=== PATIENT | male | born 1995 | race Caucasian/White ===

== ENCOUNTER 2016-07-27 23:44 | Emergency (ER) | payer MEDICAID ==
[~2016-07-27] VITALS: Ht 188 cm; Wt 74.8 kg
[2016-07-27 23:52] VITALS: BP 140/90
--- NOTE | 2016-07-28 03:35 | NUR ---
TO ER BED 5
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
[2016-07-28] MEDS ORDERED: LIDOCAINE/EPI 1% 1:100000 20 ML VIAL INJ ONE (04:05)
[2016-07-28] MEDS ORDERED: BACITRACIN OINT 500 UNITS/GM PKT TP ONE (04:05)
[2016-07-28] MEDS ORDERED: NEOMYCIN/POLYMYXIN/BACITRACIN 0.9 GM/1 PKT TP ONE (04:25)
[2016-07-28 05:42] VITALS: BP 140/90
== END 2016-07-28 05:43 | disposition home or self-care (01) ==
LOC: MED 23:44
DX: S71.012A Laceration without foreign body, left hip, initial encounter (principal); W22.8XXA Striking against or struck by other objects, initial encounter; Y93.51 Activity, roller skating (inline) and skateboarding; Y92.89 Other specified places as the place of occurrence of the external cause; Y99.8 Other external cause status
CPT/HCPCS: 12001; 73502; 99284; J2001; Q0092

== ENCOUNTER 2017-12-13 15:41 | Emergency (ER) | payer MEDICAID ==
[~2017-12-13] VITALS: Ht 190.5 cm; Wt 78.9 kg
[2017-12-13 15:48] VITALS: BP 174/82
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
[2017-12-13 16:34] VITALS: BP 174/82
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
== END 2017-12-13 16:35 ==
LOC: MED 15:41
DX: S62.327A Displaced fracture of shaft of fifth metacarpal bone, left hand, initial encounter for closed fracture (principal); W22.8XXA Striking against or struck by other objects, initial encounter; Y93.89 Activity, other specified; Y92.89 Other specified places as the place of occurrence of the external cause; Y99.8 Other external cause status
CPT/HCPCS: 73130; 99284

== ENCOUNTER 2017-12-18 11:09 | Emergency (ER) | payer MEDICAID ==
[~2017-12-18] VITALS: Ht 190.5 cm; Wt 78.9 kg
[2017-12-18 11:56] VITALS: BP 119/83
--- NOTE | 2017-12-18 13:17 | NUR ---
PT AMBULATED TO BED 12
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
[2017-12-18 14:30] VITALS: BP 125/78
--- NOTE | 2017-12-18 14:30 | NUR ---
Patient discharged with v/s stable. Written and verbal after care instructions given and explained. Patient alert, oriented and verbalized understanding of instructions. Ambulatory with steady gait. All questions addressed prior to discharge. ID band removed. Patient advised to follow up with PMD. Opportunity to ask questions provided and answered.
== END 2017-12-18 14:30 | disposition home or self-care (01) ==
LOC: MED 11:09
DX: S62.327A Displaced fracture of shaft of fifth metacarpal bone, left hand, initial encounter for closed fracture (principal); Y04.0XXA Assault by unarmed brawl or fight, initial encounter; Y93.89 Activity, other specified; Y92.89 Other specified places as the place of occurrence of the external cause; Y99.8 Other external cause status
CPT/HCPCS: 29125; 73130; 99284; Q0092

== ENCOUNTER 2018-05-24 18:35 | Emergency (ER) | payer MEDICAID, OTHER ==
[~2018-05-24] VITALS: Ht 188 cm; Wt 73.1 kg
[2018-05-24 18:48] VITALS: BP 125/74
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
--- NOTE | 2018-05-24 19:05 | NUR ---
report received from ARIANNA Frost. assumed care at this time.
--- NOTE | 2018-05-24 19:05 | NUR ---
pt endorsed to/accepted by beatriz olivo.
[2018-05-24] MEDS ORDERED: BACITRACIN OINT 500 UNITS/GM PKT TP ONE (19:50)
[2018-05-24 21:06] VITALS: BP 122/72
--- NOTE | 2018-05-24 21:09 | NUR ---
Patient discharged with v/s stable. Written and verbal after care instructions given and explained. Patient alert, oriented and verbalized understanding of instructions. Ambulatory with steady gait. All questions addressed prior to discharge. ID band removed. Patient advised to follow up with PMD. Rx of MOTRIN, AUGMENTIN, BACITRACIN given. Patient educated on indication of medication including possible reaction and side effects. Opportunity to ask questions provided and answered.
== END 2018-05-24 21:09 | disposition home or self-care (01) ==
LOC: MED 18:35
DX: S62.357A Nondisplaced fracture of shaft of fifth metacarpal bone, left hand, initial encounter for closed fracture (principal); S60.511A Abrasion of right hand, initial encounter; M25.572 Pain in left ankle and joints of left foot; F17.210 Nicotine dependence, cigarettes, uncomplicated; Y04.0XXA Assault by unarmed brawl or fight, initial encounter; Y93.89 Activity, other specified; Y92.89 Other specified places as the place of occurrence of the external cause; Y99.8 Other external cause status
CPT/HCPCS: 73130; 73600; 90471; 90715; 99283

== ENCOUNTER 2018-12-13 12:08 | Emergency (ER) | payer OTHER ==
[~2018-12-13] VITALS: Ht 190.5 cm; Wt 73.5 kg
[2018-12-13 12:28] VITALS: BP 155/92
[2018-12-13] MEDS ORDERED: CEPHALEXIN 500 MG CAP PO ONE (13:25)
[2018-12-13] MEDS ORDERED: NON ADHERENT DRESSING TP SCH (13:25)
[2018-12-13 14:09] VITALS: BP 135/72
== END 2018-12-13 14:07 | disposition home or self-care (01) ==
LOC: MED 12:08
DX: S91.311A Laceration without foreign body, right foot, initial encounter (principal); W25.XXXA Contact with sharp glass, initial encounter; Y93.89 Activity, other specified; Y92.89 Other specified places as the place of occurrence of the external cause; Y99.8 Other external cause status; F17.210 Nicotine dependence, cigarettes, uncomplicated
CPT/HCPCS: 12001; 90471; 90715; 99283